=== PATIENT | female | born 1960 | race Caucasian/White ===

== ENCOUNTER → 2020-04-15 15:48 | Outpatient (BNVA) | payer OTHER, SELFPAY | PROVIDERS: Visit Provider Family Medicine | DX: I10 Essential (primary) hypertension (principal); Z12.31 Encounter for screening mammogram for malignant neoplasm of breast | CPT/HCPCS: 80053; 80061; 84439; 84443; 85025; 86140 ==

== ENCOUNTER → 2020-09-15 13:33 | Outpatient (BNVA) | payer OTHER, SELFPAY | PROVIDERS: Visit Provider Nurse Practitioner Family | DX: R43.2 Parageusia (principal); R43.0 Anosmia | CPT/HCPCS: 87635 ==

== ENCOUNTER → 2021-03-25 13:03 | Outpatient (BNVA) | payer OTHER, SELFPAY | PROVIDERS: Visit Provider Family Medicine | DX: R30.0 Dysuria (principal) | CPT/HCPCS: 81000 ==

== ENCOUNTER → 2021-03-31 08:49 | Outpatient (BNVA) | payer OTHER, SELFPAY | PROVIDERS: Visit Provider Family Medicine | DX: R30.0 Dysuria (principal); I10 Essential (primary) hypertension | CPT/HCPCS: 80053; 81000; 84439; 84443; 85025 ==

== ENCOUNTER → 2022-07-21 10:58 | Outpatient (BNVA) | payer BC, SELFPAY | PROVIDERS: Visit Provider Family Medicine | DX: R05.9 Cough, unspecified (principal); J40 Bronchitis, not specified as acute or chronic | CPT/HCPCS: 85025; 87400 ==